=== PATIENT | male | born 1940 | race Caucasian/White ===

== ENCOUNTER → 2017-02-21 | Outpatient (CLI) | payer MEDICARE, OTHER | LOC: GMAJ 17:15 | PROVIDERS: ATTEND Family Medicine | DX: N40.1 Benign prostatic hyperplasia with lower urinary tract symptoms (principal); R53.83 Other fatigue; E78.2 Mixed hyperlipidemia | CPT/HCPCS: 84443; G0103 ==

== ENCOUNTER 2017-03-06 12:15 | Emergency (ER) | payer MEDICARE, OTHER ==
--- NOTE | 2017-03-06 12:34 | ED.PDOC ---
History of Present Illness - General Chief Complaint: Bite: Animal/Insect/Human Stated Complaint: Dog Bite Time Seen by Provider: 03/06/17 12:26 Source: patient, RN notes reviewed, Vital Signs reviewed Exam Limitations: no limitations - History of Present Illness Initial Comments: Patient comes in with c/o of dog bite to his L thumb X 4 days. Area is now red and swollen. He is not sure if dog is up to date on vaccines. Dogs were on the bed and started to fight. He tried to break them up and got bit on his thumb - bilateral sides. Timing/Duration: getting worse - over past 3 days Severity: moderate Improving Factors: nothing Worsening Factors: nothing Associated Symptoms: denies symptoms Allergies/Adverse Reactions: Allergies NO KNOWN ALLERGY Allergy (Unverified 07/20/13 14:00) Home Medications: Ambulatory Orders Atorvastatin Calcium [Lipitor] 40 mg PO HS 07/20/13 Escitalopram Oxalate [Lexapro] 20 mg PO AM 07/20/13 Metoprolol Tartrate 25 mg PO BID 07/20/13 Multiple Vitamins W/ Minerals 1 ea PO DAILY 07/20/13 Paroxetine HCl [Paxil] 20 mg PO AM 07/20/13 Ranitidine HCl 150 mg PO DAILY PRN 07/20/13 Albuterol Inhaler [Proventil Hfa] 2 puff INH .Q4 PRN #1 inh 07/22/13 Azithromycin Tab [Zithromax] 250 mg PO QD #3 tab 07/22/13 Hydrocodone Polistirex-Chlorph [Tussionex Pennkinetic Ext] 5 ml PO .Q12 PRN #4 oz 07/22/13 Ipratropium [place] Hfa [Atrovent Hfa] 2 puff IN QID #1 unit 07/22/13 Montelukast [Singulair] 10 mg PO AM #30 tab 07/22/13 Potassium Phosphate Monobasic [K-Phos] 500 mg PO QID #12 tab 07/22/13 predniSONE 20 mg PO DAILY #0 tab 07/22/13 Amoxicillin & Pot Clavulanate [Augmentin] 875 mg PO BID #14 tab 03/06/17 Review of Systems - Review of Systems Constitutional: States: no symptoms reported Respiratory: States: no symptoms reported Cardiology: States: no symptoms reported Gastrointestinal/Abdominal: States: no symptoms reported Musculoskeletal: States: no symptoms reported Skin: States: see HPI Neurological: States: no symptoms reported All other Systems: No Change from Baseline Past Medical History (General) - Patient Medical History Hx Seizures: No Hx Stroke: No Hx Asthma: No Hx of COPD: No Hx Cardiac Disorders: Yes - CABG 2007 Hx Congestive Heart Failure: No Hx Pacemaker: No Hx Hypertension: Yes Hx Diabetes: No Hx MRSA: No Surgical History: coronary bypass surgery - Vaccination History Hx Tetanus, Diphtheria Vaccination: No Hx Influenza Vaccination: Yes - Social History Hx Alcohol Use: No Hx Substance Use: No Hx Physical Abuse: No Hx Emotional Abuse: No Physical Exam - Physical Exam General Appearance: Alert, Comfortable, No apparent distress, Well Developed, Well Groomed, Well Hydrated, Well Nourished Respiratory: no respiratory distress Extremity: normal range of motion, no pedal edema, normal capillary refill, inflammation - L thumb - distal aspect, swelling - L distal thumb Neurologic: no motor/sensory deficits, alert, normal mood/affect, oriented x 3 Skin Exam: normal color, warm/dry, other - L thumb - Laceration on medial aspect of distal phalynx with puncture on lateral aspect. Sm amount of bleeding and purulent drainage. Erythematous, warm, tender. Comments: Vital Signs 03/06/17 12:32 Temperature 98.8 F Pulse Rate [ 73 Left Radial] Respiratory 16 Rate Blood Pressure 143/83 [Left Arm] O2 Sat by Pulse 94 L Oximetry Progress - Progress Progress: 03/06/17 12:47 TdaP given and Augmentin 875mg PO Departure - Departure Clinical Impression: Dog bite of left thumb with infection Qualifiers: Encounter type: initial encounter Qualified Code(s): S61.052A - Open bite of left thumb without damage to nail, initial encounter; L08.9 - Local infection of the skin and subcutaneous tissue, unspecified; W54.0XXA - Bitten by dog, initial encounter Time of Disposition: 12:50 Disposition: Discharge to Home or Self Care Condition: Good Departure Forms: ED Discharge - Pt. Copy, Patient Portal Self Enrollment Instructions: DI for Animal Bites Diet: resume usual diet Activity: increase activity as tolerated Referrals: Pato Holly MD [Primary Care Provider] - 1-2 Weeks Prescriptions: Amoxicillin & Pot Clavulanate [Augmentin] 875 mg PO BID #14 tab Home Medications: Ambulatory Orders Atorvastatin Calcium [Lipitor] 40 mg PO HS 07/20/13 Escitalopram Oxalate [Lexapro] 20 mg PO AM 07/20/13 Metoprolol Tartrate 25 mg PO BID 07/20/13 Multiple Vitamins W/ Minerals 1 ea PO DAILY 07/20/13 Paroxetine HCl [Paxil] 20 mg PO AM 07/20/13 Ranitidine HCl 150 mg PO DAILY PRN 07/20/13 Albuterol Inhaler [Proventil Hfa] 2 puff INH .Q4 PRN #1 inh 07/22/13 Azithromycin Tab [Zithromax] 250 mg PO QD #3 tab 07/22/13 Hydrocodone Polistirex-Chlorph [Tussionex Pennkinetic Ext] 5 ml PO .Q12 PRN #4 oz 07/22/13 Ipratropium [place] Hfa [Atrovent Hfa] 2 puff IN QID #1 unit 07/22/13 Montelukast [Singulair] 10 mg PO AM #30 tab 07/22/13 Potassium Phosphate Monobasic [K-Phos] 500 mg PO QID #12 tab 07/22/13 predniSONE 20 mg PO DAILY #0 tab 07/22/13 Amoxicillin & Pot Clavulanate [Augmentin] 875 mg PO BID #14 tab 03/06/17 Additional Instructions: Hot soaks 3-5X/day
[2017-03-06 12:36] VITALS: BP 143/83; TEMP 98.8; O2SAT 94
[2017-03-06] MEDS ORDERED: AMOXICILLIN & POT CLAVULANATE 875 MG TAB PO ONE (12:37)
[2017-03-06] MEDS ORDERED: TETANUS,DIPHTHERIA,PERTUSSIS 1 EA SYG IM ONE (12:37)
== END 2017-03-06 12:58 | disposition home or self-care (01) ==
LOC: ER 12:15
DX: S61.052A Open bite of left thumb without damage to nail, initial encounter (principal); L08.9 Local infection of the skin and subcutaneous tissue, unspecified; Z23 Encounter for immunization; I10 Essential (primary) hypertension; Z95.1 Presence of aortocoronary bypass graft; Z79.899 Other long term (current) drug therapy; W54.0XXA Bitten by dog, initial encounter; Y92.008 Other place in unspecified non-institutional (private) residence as the place of occurrence of the external cause

== ENCOUNTER → 2017-08-18 | Outpatient (CLI) | payer MEDICARE, OTHER | END | disposition home or self-care (01) | LOC: GMAJ 11:00 | PROVIDERS: ATTEND Family Medicine | DX: N40.1 Benign prostatic hyperplasia with lower urinary tract symptoms (principal) ==

== ENCOUNTER 2018-12-02 19:05 | Emergency (ER) | payer MEDICARE, OTHER ==
[2018-12-02] MEDS ORDERED: ASPIRIN (CHEWABLE) 81 MG TAB PO ONE (19:13)
[2018-12-02] MEDS ORDERED: NITROGLYCERIN 0.4 MG 25 EA TAB SL ONE (19:22)
[2018-12-02] MEDS: NITROGLYCERIN 0.4 MG 25 EA TAB SL ONE ×2 (19:24→19:36)
--- NOTE | 2018-12-02 19:38 | ED.PDOC ---
History of Present Illness - General Chief Complaint: Chest Pain/HI Stated Complaint: chest pain Time Seen by Provider: 12/02/18 19:10 Source: patient Exam Limitations: no limitations - History of Present Illness Initial Comments: Cesar Biggs 78 y/o male stated that he had chest discomfort with radiation to both jaw area about one hour ago after eating baked potato with castillo had one episode of N/V;no SOB,dizziness.Stated he was thinking about his hiatal hernia took antacids and also NTG SL which according to patient medication 10 years ago.Has history of CABG -2007 and had nuclear cardiac scan by his physicist cryogenics 4 weeks ago. Timing/Duration: 1-3 hours Severity: moderate Location: central Activities at Onset: rest, other - recently ate Prior Chest Pain/Cardiac Workup: stress test Improving Factors: nothing Nitro Today/Relief: 0.4 mg x 2, provided by ED Aspirin Treatment Today: 81 mg x 4, provided by ED Associated Symptoms: nausea/vomiting Allergies/Adverse Reactions: Allergies NO KNOWN ALLERGY Allergy (Unverified 07/20/13 14:00) Home Medications: Ambulatory Orders Atorvastatin Calcium [Lipitor] 40 mg PO HS 07/20/13 Escitalopram Oxalate [Lexapro] 20 mg PO AM 07/20/13 Metoprolol Tartrate 25 mg PO BID 07/20/13 Multiple Vitamins W/ Minerals 1 ea PO DAILY 07/20/13 Paroxetine HCl [Paxil] 20 mg PO AM 07/20/13 Ranitidine HCl 150 mg PO DAILY PRN 07/20/13 Albuterol Inhaler [Proventil Hfa] 2 puff INH .Q4 PRN #1 inh 07/22/13 Azithromycin Tab [Zithromax] 250 mg PO QD #3 tab 07/22/13 Hydrocodone Polistirex-Chlorph [Tussionex Pennkinetic Ext] 5 ml PO .Q12 PRN #4 oz 07/22/13 Ipratropium [place] Hfa [Atrovent Hfa] 2 puff IN QID #1 unit 07/22/13 Montelukast [Singulair] 10 mg PO AM #30 tab 07/22/13 Potassium Phosphate Monobasic [K-Phos] 500 mg PO QID #12 tab 07/22/13 predniSONE 20 mg PO DAILY #0 tab 07/22/13 Amoxicillin & Pot Clavulanate [Augmentin] 875 mg PO BID #14 tab 03/06/17 Review of Systems - Review of Systems Constitutional: States: no symptoms reported EENTM: States: no symptoms reported Respiratory: States: no symptoms reported Cardiology: States: see HPI Gastrointestinal/Abdominal: States: no symptoms reported Genitourinary: States: no symptoms reported Musculoskeletal: States: no symptoms reported Skin: States: no symptoms reported Neurological: States: no symptoms reported All other Systems: Reviewed and Negative, No Change from Baseline Past Medical History (General) - Patient Medical History Hx Seizures: No Hx Stroke: No Hx Asthma: No Hx of COPD: No Hx Cardiac Disorders: Yes - CABG 2007 Hx Congestive Heart Failure: No Hx Pacemaker: No Hx Hypertension: Yes Hx Diabetes: No Hx Cancer: No Hx Hepatitis C: No Hx MRSA: No Surgical History: coronary bypass surgery, other - knee - Vaccination History Hx Tetanus, Diphtheria Vaccination: No Hx Influenza Vaccination: Yes - Social History Hx Tobacco Use: No Hx Alcohol Use: No Hx Substance Use: No Hx Physical Abuse: No Hx Emotional Abuse: No Family Medical History - Family History Mother Family History: Unknown Hx Cardiac Disease: Yes Hx Family Cancer: Yes - bladder-dad Father Hx Family Cancer: Yes Physical Exam - Physical Exam General Appearance: Alert, Comfortable, No apparent distress Eyes, Ears, Nose, Throat Exam: PERRL/EOMI, normal ENT inspection Neck: non-tender, full range of motion, supple, normal inspection Respiratory: chest non-tender, lungs clear, normal breath sounds, no respiratory distress Cardiovascular/Chest: normal peripheral pulses, regular rate, rhythm, no gallop, no murmur Peripheral Pulses: radial,right: 2+, radial,left: 2+ Gastrointestinal/Abdominal: non tender, soft, no organomegaly Extremity: no pedal edema, no calf tenderness Neurologic: alert, oriented x 3 Skin Exam: normal color, warm/dry, other - well healed surgical scar chest Progress - Progress Progress: 12/02/18 20:11 Vital Signs - 8 hr 12/02/18 12/02/18 12/02/18 19:13 19:27 19:28 Temperature 98.4 F Pulse Rate 90 Pulse Rate [ 79 91 H 79 left] Respiratory 18 Rate Blood Pressure 185/91 [left] O2 Sat by Pulse 96 Oximetry 12/02/18 19:43 Temperature Pulse Rate Pulse Rate [ 88 left] Respiratory 18 Rate Blood Pressure 129/72 [left] O2 Sat by Pulse 94 L Oximetry 12/02/18 20:12 Chest pain free after 2nd dose of NTG SL 12/02/18 21:04 Vital Signs - 8 hr 12/02/18 12/02/18 12/02/18 19:13 19:27 19:28 Temperature 98.4 F Pulse Rate 90 Pulse Rate [ 79 91 H 79 left] Respiratory 18 Rate Blood Pressure 185/91 [left] O2 Sat by Pulse 96 Oximetry 12/02/18 12/02/18 19:43 20:16 Temperature 98.4 F Pulse Rate Pulse Rate [ 88 72 left] Respiratory 18 18 Rate Blood Pressure 129/72 134/76 [left] O2 Sat by Pulse 94 L 94 L Oximetry 12/02/18 21:40 Discuss case with physicist cryogenics conservation scientist for Dr.Franki Tavarez conservation scientist for Dr. Rob his physicist cryogenics and want transfer to [facility] - Results/Orders Results/Orders: 12/02/18 19:13 IV Care:Saline Lock per Protoc QSHIFT URINALYSIS Stat 12/02/18 19:15 EKG STAT Laboratory Results - last 24 hr 12/02/18 12/02/18 19:13 20:36 WBC 8.3 RBC 4.55 L Hgb 14.3 Hct 41.4 L MCV 90.9 MCH 31.3 H MCHC 34.5 RDW 13.5 Plt Count 211 MPV 7.4 Absolute Neuts (auto) 3.00 Absolute Lymphs (auto) 4.10 H Absolute Monos (auto) 0.80 Absolute Eos (auto) 0.30 Absolute Basos (auto) 0.10 Neutrophils % 36.4 L Lymphocytes % 49.6 Monocytes % 9.3 H Eosinophils % 4.0 Basophils % 0.7 PT 9.9 INR 0.99 PTT (SP) 21.9 Sodium 139 Potassium 3.8 Chloride 105 Carbon Dioxide 25 Anion Gap 12.8 BUN 15 Creatinine 1.13 BUN/Creatinine Ratio 13.3 Random Glucose 150 H Serum Osmolality 281.2 Calcium 8.7 Magnesium 2.0 Total Bilirubin 0.4 Direct Bilirubin < 0.1 Indirect Bilirubin 0.3 AST 22 ALT 26 Alkaline Phosphatase 55 Creatine Kinase 73 CK-MB (CK-2) 1.1 CK-MB (CK-2) % Not Reportable Troponin I < 0.02 0.05 Serum Total Protein 6.7 Albumin 3.7 - EKG/XRAY/CT EKG: Sinus, nonspecific ST T wave Chg Comments: HR-78 XRAY: chest - no active disease Departure - Departure Clinical Impression: NSTEMI (non-ST elevated myocardial infarction), 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 Copy, Patient Portal Self Enrollment Referrals: Pato Holly MD [Primary Care Provider] - 1-2 Weeks Home Medications: Ambulatory Orders Atorvastatin Calcium [Lipitor] 40 mg PO HS 07/20/13 Escitalopram Oxalate [Lexapro] 20 mg PO AM 07/20/13 Metoprolol Tartrate 25 mg PO BID 07/20/13 Multiple Vitamins W/ Minerals 1 ea PO DAILY 07/20/13 Paroxetine HCl [Paxil] 20 mg PO AM 07/20/13 Ranitidine HCl 150 mg PO DAILY PRN 07/20/13 Albuterol Inhaler [Proventil Hfa] 2 puff INH .Q4 PRN #1 inh 07/22/13 Azithromycin Tab [Zithromax] 250 mg PO QD #3 tab 07/22/13 Hydrocodone Polistirex-Chlorph [Tussionex Pennkinetic Ext] 5 ml PO .Q12 PRN #4 oz 07/22/13 Ipratropium [place] Hfa [Atrovent Hfa] 2 puff IN QID #1 unit 07/22/13 Montelukast [Singulair] 10 mg PO AM #30 tab 07/22/13 Potassium Phosphate Monobasic [K-Phos] 500 mg PO QID #12 tab 07/22/13 predniSONE 20 mg PO DAILY #0 tab 07/22/13 Amoxicillin & Pot Clavulanate [Augmentin] 875 mg PO BID #14 tab 03/06/17 Transfer to Outside Facility - Transfer Information Accepting Provider:: Dr. Armando Tavarez Accepting Facility: [facility] Reason for Transfer: laborer/grade check
--- NOTE | 2018-12-02 19:45 | RAD ---
EXAM DESCRIPTION: Chest,1 View CLINICAL HISTORY: 78 years Male chest pain COMPARISON: September 18, 2013. TECHNIQUE: AP view of the chest was obtained. FINDINGS: Cardiac size is within normal limits. Central vessels are not increased. Mediastinal surgical clips and sternal wires noted. No infiltrates or effusions seen. No consolidation. No pneumothorax. IMPRESSION: No active disease. Electronically signed by: Debbie Holloway MD 12/02/2018 7:43 PM CDT
[2018-12-02] MEDS ORDERED: ENOXAPARIN SODIUM 100 MG/ML SYG SUBCU ONE (21:44)
[2018-12-02 23:33] VITALS: BP 138/75
[2018-12-02 23:59] VITALS: TEMP 99.2; O2SAT 96
== END 2018-12-03 00:05 | disposition short-term general hospital (02) ==
LOC: ER 19:05
DX: I21.4 Non-ST elevation (NSTEMI) myocardial infarction (principal); I25.10 Atherosclerotic heart disease of native coronary artery without angina pectoris; I10 Essential (primary) hypertension; Z95.1 Presence of aortocoronary bypass graft; Z79.899 Other long term (current) drug therapy
CPT/HCPCS: 36415; 71045; 80048; 80076; 81001; 82550; 82553; 84484; 85025; 85610; 85730; 93005; J1650

== ENCOUNTER → 2019-03-12 | Outpatient (CLI) | payer MEDICARE, OTHER | LOC: GMAJ 10:38 | PROVIDERS: ATTEND Family Medicine | DX: Z12.5 Encounter for screening for malignant neoplasm of prostate (principal); E78.00 Pure hypercholesterolemia, unspecified; I10 Essential (primary) hypertension ==